=== PATIENT | male | born 1985 | race Caucasian/White ===

== ENCOUNTER 2022-06-15 16:57 | Emergency (ER) | payer MEDICAID ==
[~2022-06-15] VITALS: Ht 169.2 cm; Wt 80.9 kg
[2022-06-15 16:59] VITALS: BP 175/95
--- NOTE | 2022-06-15 17:09 | NUR ---
PT AMB TO BED 2.
--- NOTE | 2022-06-15 17:23 | NUR ---
37 Y/O MALE BIB SELF C/O 02/08 LEFT UPPER BACK PAIN X 3 WEEKS. DENIES ANY TRAUMA/INJURY, DENIES ANY CP, SOB, COUGH. BP 175/95 AT THIS TIME. NO OVERT SWELLING/BRUISING OR DEFORMITY NOTED. PMH: DENIES HX: TB 10 YEARS AGO [facility]
--- NOTE | 2022-06-15 17:23 | NUR ---
DR RICHARDSON AT BEDSIDE FOR EVAL
[2022-06-15] MEDS ORDERED: IBUPROFEN 600 MG TAB PO ONE (17:25)
[2022-06-15] MEDS ORDERED: ACETAMINOPHEN EXTRA STRENGTH 500 MG TAB PO ONE (17:25)
--- NOTE | 2022-06-15 17:28 | NUR ---
X-Ray at bedside.
[2022-06-15 18:22] LABS: BASOPHILS % (AUTO) 0.6 % (0.0-2.0); EOSINOPHILS # (AUTO) 0.2 K/uL (0-0.4); EOSINOPHILS % (AUTO) 4.6 % (0.0-4.0); HEMATOCRIT 44.9 % (36-52); HEMOGLOBIN 15.8 g/dL (12.0-18.0); LYMPHOCYTES # (AUTO) 1.8 K/uL (2.0-11.5); MEAN CORPUSCULAR HEMOGLOBIN 30 pg (27-31); MEAN CORPUSCULAR HGB CONC 35 g/dL (33-37); MEAN CORPUSCULAR VOLUME 84.5 fL (80-94); MONOCYTES # (AUTO) 0.4 K/uL (0.8-1.0); MONOCYTES % (AUTO) 8.6 % (1.7-9.3); NEUTROPHILS # (AUTO) 2.4 K/uL (1.8-7.7); NEUTROPHILS % (AUTO) 49.2 % (42.2-75.2); PLATELET COUNT (AUTO) 269 K/uL (140-450); RED BLOOD CELL COUNT(AUTO) 5.31 MIL/uL (4.20-6.10); RED CELL DISTRIBUTION WIDTH 13.2 % (11.6-13.7); WHITE BLOOD COUNT (AUTO) 4.8 K/uL (4.8-10.8)
[2022-06-15 18:38] LABS: ALBUMIN 4.1 g/dL (3.4-5.0); ANION GAP 11.8 (8-16); ASPARTATE AMINOTRANSFERASE 5 U/L (15-37); CARBON DIOXIDE 27.9 mmol/L (21-32); CHLORIDE 103 mmol/L (98-107); CREATININE 1.1 mg/dL (0.6-1.3); GFR ARICAN-AMERICAN 96 mL/min (>90); GLUCOSE 144 mg/dL (74-106); POTASSIUM 3.7 mmol/L (3.5-5.1); SODIUM SERUM 139 mmol/L (136-145); TOTAL BILIRUBIN 0.3 mg/dL (0.0-1.0); UREA NITROGEN, BLOOD 16 mg/dL (7-18)
--- NOTE | 2022-06-15 18:58 | NUR ---
PT STATING THAT HE WANTS TO WAIT IN THE LOBBY, ASHLEY MADE AWARE STATED THAT ITS FINE TO WAIT IN THE LOBBY. PT INFORMED THAT WE ARE WAITING FOR THE RESULTS OF THE LAB, PT STATED UNDERSTANDING
--- NOTE | 2022-06-15 18:59 | NUR ---
AMBULATED TO OUTSIDE LOBBY
--- NOTE | 2022-06-15 19:11 | NUR ---
Pt report given to ISHAAN CARRILLO. Transfer of care at this time.
[2022-06-15] MEDS ORDERED: IBUP-2213 PO (19:48)
[2022-06-15 20:00] VITALS: BP 136/79
--- NOTE | 2022-06-15 20:00 | NUR ---
d/c with [facility]. d/c education given. opportunity to ask questions given and answered. rx of motrin given.
== END 2022-06-15 20:00 | disposition home or self-care (01) ==
LOC: MED 16:57
DX: R07.9 Chest pain, unspecified (principal); M54.6 Pain in thoracic spine
CPT/HCPCS: 36415; 71045; 80053; 84484; 85025; 85379; 93005; 99285; Q0092